=== PATIENT | male | born 1985 | race Caucasian/White ===

== ENCOUNTER 2024-10-14 06:42 | Day surgery (SDC) | payer BC, SELFPAY ==
[2024-10-12 15:05] VITALS: BMI 39.5
[2024-10-13 14:22] LABS: Basophils # (Auto) 0.1 Thou/mm3 (0.0-0.2); Basophils % (Auto) 1 % (0-2.5); Eosinophils # (Auto) 0.2 Thou/mm3 (0.0-0.5); Eosinophils % (Auto) 1 % (0-10); Hematocrit 46.1 % (41.0-53.0); Hemoglobin 16.3 g/dL (13.5-16.0); Immature Granulocytes % (Auto) 1 % (0-0); Immature Granulocytes Auto 0.15 Thou/mm3 (0.00-0.00); Lymphocytes # (Auto) 4.3 Thou/mm3 (1.0-4.8); Lymphocytes % (Auto) 22 % (10-50); Mean Corpuscular HGB Conc 35.4 g/dl (31.0-37.0); Mean Corpuscular Hemoglobin 31.1 pg (25.0-35.0); Mean Corpuscular Volume 88 fL (80-100); Monocytes # (Auto) 1.5 Thou/mm3 (0.0-0.8); Monocytes % (Auto) 8 % (0-12); Neutrophils # (Auto) 12.7 Thou/mm3 (1.8-7.7); Neutrophils % (Auto) 67 % (37-80); Nucleated Red Blood Cell % 0 /100 WBC (0); Platelet Count 331 Thou/mm3 (140-440); RDW Standard Deviation 43.4 fL (35.1-43.9); Red Blood Count 5.24 Miln/mm3 (4.50-5.90)
[2024-10-13 14:29] LABS: INR 0.9 (0.9-1.3); Partial Thromboplastin Time 30.4 Seconds (22.0-36.0); Prothrombin Time 10.4 Seconds (9.0-12.2)
[2024-10-13 14:39] LABS: Anion Gap 10 (7-16); BUN/Creatinine Ratio 10 Ratio (12-20); Blood Urea Nitrogen 12 mg/dL (9-23); Calcium 9.4 mg/dL (8.3-10.6); Carbon Dioxide 28.8 mMol/L (20.0-31.0); Chloride 100 mMol/L (98-107); Creatinine (Component) 1.2 mg/dL (0.6-1.3); Estimated Creatinine Clearance 120.9 mL/min (>60); Glucose 121 mg/dL (74-106); Osmolality,Calculated 278 (275-295); Sodium 139 mMol/L (136-145); eGFR > 60 See Note
[2024-10-14] VITALS (10 sets, daily range): BP systolic 103–141; BP diastolic 51–107; PULSE 79–102; RESP 12–18; TEMP 36.2–36.8; O2SAT 93–97; BMI 43.0
--- NOTE | 2024-10-14 08:01 | EKG_ITS ---
[facility] Test Date: 2024-10-14 Pat Name: JESSICA GARCIA Department: Room: - Gender: Male Dental Treatment Coordinator: : 1985 Requested By: Alejandro Rod Order Number: [id number] Reading MD: Alejandro Rod Measurements Intervals [place] Rate: 88 P: 53 MI: 191 QRS: 0 QRSD: 123 T: -10 QT: 360 QTc: 436 Interpretive Statements SINUS RHYTHM MODERATE INTRAVENTRICULAR CONDUCTION DELAY Compared to ECG 04/18/2023 21:21:45 Intraventricular conduction delay now present /[id number]
--- NOTE | 2024-10-14 10:47 | PD.CARDCATH ---
Cardiac Cath Procedure Procedure Narrative Procedure date 10/14/2024 Title of the procedure AICD generator change Indication for the procedure AICD has reached elective replacement interval Procedure This is done in the cardiac lab under current electrocardiographic monitoring intermittent blood pressure monitoring Left subclavian AICD pocket was infiltrated with 1% lidocaine anesthesia with ep Subsequently the pocket was incised and the previous AICD was delivered Explanted AICD [employer] serial #[id number] Subsequently both leads were connected to the new device New device [employer] serial #[id number] Both leads were tested P wave was 5.1 mV, threshold 0.9 V at 0.4 ms, impedance was 404 ohms R wave was 10.2 mV, 0.8V threshold, 355 ohms, shock impedance 52 ohms Both leads were connected to the new device and the device was placed in the pocket Subcutaneous tissue was sutured with 2-0 Vicryl skin was secured with Dermabond Patient tolerated the whole procedure well There was no complication Conclusion Successful AICD generator change
[2024-10-14] MEDS: VANCOMYCIN/NS 500 MG IVPB 100 ML 120 MG IV (11:00)
--- NOTE | 2024-10-14 11:49 | PC.NURSE ---
1046 patient is awake, alert, breathing unlabored, s/p AICD battery changeout, dressing to left upper chest dry with no bleeding, report received from Alicia SANDHU, patient to recover for 2 hours and infuse 500mg vancomycin antibiotic prior to discharge. New antibiotic will be called in to patient's pharmacy by .
--- NOTE | 2024-10-14 17:10 | PC.NURSE ---
1246 patient is awake,alert, breathing unlabored, dressing to left upper chest dry with no bleeding, vancomycin antibiotic completed, patient able to tolerate sandwich and water with no nausea or vomiting, pt able to ambulate to bathroom and void, meets discharge criteria, discharge instructions given to patient and spouse Viola, patient discharged home in wheelchair with all belongings. Pt aware to miner pick antibiotic at pharmacy to be called in by .
== END 2024-10-14 11:50 | disposition home or self-care (01) ==
PROVIDERS: PCP Nurse Practitioner Family; Referring Provider Internal Medicine; Visit Provider Internal Medicine
PROC: 0JPT0PZ Removal of Cardiac Rhythm Related Device from Trunk Subcutaneous Tissue and Fascia, Open Approach (ICD-10-PCS; CPT 33249; principal; 2024-10-14 09:30)
DX: Z45.010 Encounter for checking and testing of cardiac pacemaker pulse generator [battery] (principal); I42.9 Cardiomyopathy, unspecified; Z01.810 Encounter for preprocedural cardiovascular examination
CPT/HCPCS: 33249; 36415; 80048; 85025; 85610; 85730; 93005; 99152; 99153; A4649; C1721; J0171; J0461; J2250; J2310; J2371; J3010; J3370; J3490